=== PATIENT | female | born 1955 | race Native Hawaiian/Other Pacific Islander ===

== ENCOUNTER → 2016-09-06 | Outpatient (CLI) | payer OTHER ==
[~2016-09-06] MED LIST: NO MEDS
== END | disposition home or self-care (01) ==
LOC: RADMN 15:45
PROVIDERS: ATTEND Internal Medicine
DX: R76.11 Nonspecific reaction to tuberculin skin test without active tuberculosis (principal)

== ENCOUNTER 2018-03-29 21:02 | Emergency (ER) | payer OTHER ==
[~2018-03-29] VITALS: Ht 152.4 cm; Wt 54.5 kg
[2018-03-29] MEDS ORDERED: LOSA50TA64 PO (21:12)
[2018-03-29] MEDS ORDERED: ACETAMINOPHEN 500 MG TABLET PO ONE (23:00)
[2018-03-29 23:09] VITALS: BP 127/76
== END 2018-03-29 23:20 | disposition home or self-care (01) ==
LOC: EMS 21:03
DX: S80.11XA Contusion of right lower leg, initial encounter (principal); Z79.899 Other long term (current) drug therapy; W22.8XXA Striking against or struck by other objects, initial encounter; Y93.89 Activity, other specified; Y92.238 Other place in hospital as the place of occurrence of the external cause; Y99.0 Civilian activity done for income or pay

== ENCOUNTER → 2020-07-27 | Outpatient (CLI) | payer OTHER ==
[~2020-07-27] MED LIST changes: +LOSA50TA37 PO; -NO MEDS
== END | disposition home or self-care (01) ==
LOC: RADPV 09:28
PROVIDERS: ATTEND Internal Medicine
DX: R76.11 Nonspecific reaction to tuberculin skin test without active tuberculosis (principal)
CPT/HCPCS: 71045